=== PATIENT | male | born 1985 | race African-American/Black ===

== ENCOUNTER 2018-07-25 11:38 | Emergency (ER) | payer BC ==
--- NOTE | 2018-07-25 12:08 | EDM.PDOC ---
ED HPI GENERAL MEDICAL PROBLEM - General Chief Complaint: Eye Problems Stated Complaint: PINK EYE Time Seen by Provider: 07/25/18 12:00 Source of Information: Reports: Patient History Limitations: Reports: No Limitations - History of Present Illness INITIAL COMMENTS - FREE TEXT/NARRATIVE: HISTORY AND PHYSICAL: History of present illness: Patient is a 32-year-old male who presents to the ED today with concerns for pinkeye. Patient states this morning when he woke up he notices eye lid was slightly more swollen and his eye was crusted shut. He states he noticed the whites of his eyes are little bit more pink so he came to the ED today. She denies any visual changes, fever, chills, nausea, vomiting, shortness of breath cough, skin rashes, diarrhea, constipation, abdominal pain, chest pain, sore throat, nasal drainage, sinus pain, or all other GI, , respiratory, or cardiovascular concerns. Patient denies any health history. Review of systems: As per history of present illness and below otherwise all systems reviewed and negative. Past medical history: As per history of present illness and as reviewed below otherwise noncontributory. Surgical history: As per history of present illness and as reviewed below otherwise noncontributory. Social history: See social history for further information Family history: As per history of present illness and as reviewed below otherwise noncontributory. Physical exam: General: Patient is alert, oriented, and in no acute distress. He is sitting comfortably on the exam table. HEENT: Atraumatic, normocephalic, pupils equal and reactive bilaterally, negative for conjunctival pallor or scleral icterus, mucous membranes moist, TMs normal bilaterally, throat clear, neck supple, nontender, trachea midline. No drooling or trismus noted. No meningeal signs. No hot potato voice noted. Patient does have slight edema of the right eyelid with crusting around the eyelashes. The sclerae is slightly injected bilaterally. There is no surrounding edema or erythema of the orbital sockets. Lungs: Clear to auscultation, breath sounds equal bilaterally, chest nontender. Heart: S1S2, regular rate and rhythm without overt murmur Abdomen: Soft, nondistended, nontender. Negative for masses or hepatosplenomegaly. Negative for costovertebral tenderness. Pelvis: Stable nontender. Genitourinary: Deferred. Rectal: Deferred. Skin: Intact, warm, dry. No lesions or rashes noted. Extremities: Atraumatic, negative for cords or calf pain. Neurovascular unremarkable. Neuro: Awake, alert, oriented. Cranial nerves II through XII unremarkable. Cerebellum unremarkable. Motor and sensory unremarkable throughout. Exam nonfocal. Notes: On exam, patient does show evidence of conjunctivitis of the right eye and the left appears to be following suit. Will treat for bilateral conjunctivitis. Supportive care measures were reviewed and discussed. Voices understanding and is agreeable to plan of care. Denies any further questions or concerns at this time. Diagnostics: None Therapeutics: None Prescription: Erythromycin ointment Impression: Conjunctivitis, bilateral Plan: 1. Apply the medication as prescribed to both eyes. 2. Follow-up with her primary care provider as discussed. 3. Return to the ED as needed and as discussed. Definitive disposition and diagnosis as appropriate pending reevaluation and review of above. Right Eye Pain Score (Numeric/FACES): 3 - Related Data Allergies Allergy/AdvReac Type Severity Reaction Status Date / Time No Known Allergies Allergy Verified 07/25/18 12:01 Home Meds: Home Meds Lisinopril [Prinivil] 10 mg PO DAILY 07/25/18 [History] ED ROS GENERAL - Review of Systems Review Of Systems: ROS reveals no pertinent complaints other than HPI. ED EXAM GENERAL W FULL EYE - Physical Exam Exam: See Below (See dictation) Course - Vital Signs Last Recorded V/S: Last Vital Signs Temp Pulse 68 07/25/18 12:02 Resp 18 07/25/18 12:02 BP 140/90 07/25/18 12:02 Pulse Ox 97 07/25/18 12:02 Departure - Departure Time of Disposition: 12:08 Disposition: Home, Self-Care 01 Clinical Impression: Conjunctivitis Qualifiers: Conjunctivitis type: acute Acute conjunctivitis type: unspecified Laterality: bilateral Qualified Code(s): H10.33 - Unspecified acute conjunctivitis, bilateral - Discharge Information Referrals: Olivier Le MD [Primary Care Provider] - Forms: ED Department Discharge Additional Instructions: The following information is given to patients seen in the emergency department who are being discharged to home. This information is to outline your options for follow-up care. We provide all patients seen in our emergency department with a follow-up referral. The need for follow-up, as well as the timing and circumstances, are variable depending upon the specifics of your emergency department visit. If you don't have a primary care physician on staff, we will provide you with a referral. We always advise you to contact your personal physician following an emergency department visit to inform them of the circumstance of the visit and for follow-up with them and/or the need for any referrals to a consulting specialist. The emergency department will also refer you to a specialist when appropriate. This referral assures that you have the opportunity for follow-up care with a specialist. All of these measure are taken in an effort to provide you with optimal care, which includes your follow-up. Under all circumstances we always encourage you to contact your private physician who remains a resource for coordinating your care. When calling for follow-up care, please make the office aware that this follow-up is from your recent emergency room visit. If for any reason you are refused follow-up, please contact the [facility] Emergency Department at and asked to speak to the emergency department charge nurse. [facility] [address] [place] [id number] [address] 1. Apply the medication as prescribed to both eyes. 2. Follow-up with her primary care provider as discussed. 3. Return to the ED as needed and as discussed.
== END 2018-07-25 12:37 | disposition home or self-care (01) ==
LOC: MW.ED 11:38
DX: H10.33 Unspecified acute conjunctivitis, bilateral (principal); Z79.899 Other long term (current) drug therapy
CPT/HCPCS: 99282

== ENCOUNTER 2019-12-08 08:50 | Emergency (ER) | payer BC ==
--- NOTE | 2019-12-08 09:27 | EDM.PDOC ---
ED HPI GENERAL MEDICAL PROBLEM - General Chief Complaint: Cardiovascular Problem Stated Complaint: HIGH BLOOD PRESSURE Time Seen by Provider: 12/08/19 09:04 Source of Information: Reports: Patient, Old Records - History of Present Illness INITIAL COMMENTS - FREE TEXT/NARRATIVE: 34-year-old male with a past medical history of hypertension presenting with headache and high blood pressure. Patient self discontinued his antihypertensive medications in May 2019. He is currently on no medications. He was concerned because he checked his blood pressure yesterday and today at [facility] and noted that it was around 170 systolic. He also had a headache and was concerned that it might be related to his high blood pressure. He tells me that he has had headaches about once every other week for at least 1 to 2 years. He has not seen a neurologist in the past or been diagnosed with migraines. The headaches have not been increasing in intensity or frequency and have not changed in character. There is no history of any head trauma. He is intermittently taking acetaminophen and Excedrin with partial relief. He denies any fever, neck stiffness, visual disturbance, dysarthria, dysphasia, impaired gait, facial or extremity numbness or weakness. He denies any chest discomfort, shortness of breath, change in urine output, or extremity edema. ROS: A 10-point review of systems was negative, except as noted in the HPI (or in the ROS section of this note). Past medical history: Reviewed, no additional pertinent history. Surgical history: Reviewed in system, no additional pertinent history. Social history: Reviewed in system, no additional pertinent history. Family history: Reviewed in system, no additional pertinent history. PHYSICAL EXAM Vital signs reviewed. Nursing notes reviewed. Constitutional: Awake, alert, non-distressed. Head: Normocephalic, atraumatic. Neck: Supple, full flexion extension, no carotid bruits Eyes: EOMI, conjunctiva normal, no discharge, no scleral icterus. Pupils 3 mm bilaterally Ears, Nose, Throat: External ears and nose normal, moist oral mucosa. Cardiovascular: 2+ radial pulse, capillary refill less than 2 seconds. No peripheral edema. Pulmonary: normal work of breathing, no accessory muscle use. CTA BL Abdomen/GI: Soft, nontender, nondistended, no guarding or rigidity, no masses. Musculoskeletal: No deformities. Integumentary: Appropriate color for ethnicity, warm, dry, no pallor or jaundice, no rash. Neurologic: Awake, alert, and oriented x3. Cranial nerves II through XII intact. No facial droop or dysarthria. No temporal artery tenderness. Supple neck with normal range of motion. No pronator drift. Normal dxdijg-raqx-xfagxm and xziq-[id number]. No dysdiadochokinesia. 5/5 strength in all extremities. Sensation intact to light touch x4. Negative Romberg. Normal gait. Normal visual hedrick, no field cuts. Able to sit, stand, and ambulate without assistance. Psychiatric: Appropriate mood and affect, normal thought process. headache Pain Score (Numeric/FACES): 6 - Related Data Allergies Allergy/AdvReac Type Severity Reaction Status Date / Time No Known Allergies Allergy Verified 12/08/19 09:07 Home Meds: Home Meds amLODIPine [Norvasc] 5 mg PO DAILY #30 tab 12/08/19 [Rx] lisinopriL [Lisinopril] 25 mg PO DAILY 12/08/19 [History] Past Medical History HEENT History: Reports: None Cardiovascular History: Reports: Hypertension Respiratory History: Reports: None Gastrointestinal History: Reports: None Genitourinary History: Reports: None Musculoskeletal History: Reports: None Neurological History: Reports: None Psychiatric History: Reports: None Endocrine/Metabolic History: Reports: None Hematologic History: Reports: None Immunologic History: Reports: None Oncologic (Cancer) History: Reports: None Dermatologic History: Reports: None - Infectious Disease History Infectious Disease History: Reports: None - Past Surgical History Head Surgeries/Procedures: Reports: None HEENT Surgical History: Reports: None Cardiovascular Surgical History: Reports: None Respiratory Surgical History: Reports: None GI Surgical History: Reports: None Male Surgical History: Reports: None Endocrine Surgical History: Reports: None Neurological Surgical History: Reports: None Musculoskeletal Surgical History: Reports: None Oncologic Surgical History: Reports: None Dermatological Surgical History: Reports: None Social & Family History - Family History Family Medical History: Noncontributory - Tobacco Use Smoking Status *Q: Current Every Day Smoker Years of Tobacco use: 12 Packs/Tins Daily: 0.5 - Caffeine Use Caffeine Use: Reports: Energy Drinks - Recreational Drug Use Recreational Drug Use: Yes Recreational Drug Type: Reports: Marijuana/Hashish Recreational Drug Use Frequency: Rarely ED ROS GENERAL - Review of Systems Review Of Systems: See Below ED EXAM, GENERAL - Physical Exam Exam: See Below Course - Vital Signs Text/Narrative:: Patient hemodynamically stable, afebrile, well-appearing, looks nontoxic. Differential diagnosis includes but is not limited to: Benign headache, migraine, DEVELOPER ADVOCATE tumor, intracranial hemorrhage, subarachnoid hemorrhage, subdural hemorrhage, intraparenchymal hemorrhage, meningitis, encephalitis, hypertensive emergency, hypertensive urgency, benign essential hypertension, etc. Neuro examination nonfocal. Headache is not changing in character, intensity, or frequency for several years so suspicion for an acute or progressive [employer]EL[employer] emergency is quite low. Presentation is not concerning for subarachnoid hemorrhage. There is no photophobia or limitation of neck flexion. No anisocoria. Neck is supple. No cranial nerve deficits noted. Afebrile, no infectious symptoms. No history of head trauma. Given that this headache seems chronic in nature and unchanging, we did discuss CT imaging here in the emergency department versus outpatient MRI and primary care or neurology evaluation. I feel that this point there is no indication for an emergent noncontrast head CT given that these headaches are chronic. We are going to have the patient follow-up with a primary care doctor for reevaluation and determine if further testing including outpatient CT or MR are warranted, unless symptoms progress, change, or worsen, in which case he knows to return to the emergency department immediately for reevaluation. I did offer oral analgesic pain medications, which the patient declined. He is mildly hypertensive here and we will start him on an initial dose of oral amlodipine until he can be seen by primary care physician for further evaluation including a physical and baseline labs as deemed necessary. He has no symptoms to suggest a hypertensive emergency such as severe headache, visual disturbance, chest discomfort, shortness of breath, anuria, or severe edema. There is no indication to emergently lower his blood pressure here in the ED. Prescription for amlodipine was sent to the pharmacy. Plan: Patient is stable to discharge home with outpatient primary care follow- up. Strict emergency department return precautions were provided, patient indicated understanding. All questions were answered prior to departure. Discharged in good condition. Last Recorded V/S: Last Vital Signs Temp 36.6 C 12/08/19 09:04 Pulse 70 12/08/19 09:04 Resp 17 12/08/19 09:04 BP 158/102 H 12/08/19 09:04 Pulse Ox 98 12/08/19 09:04 Departure - Departure Time of Disposition: :26 Disposition: Home, Self-Care 01 Condition: Good Clinical Impression: Essential hypertension Chronic headache Qualifiers: Headache type: unspecified Intractability: not intractable Qualified Code(s): R51 - Headache Prescriptions: amLODIPine [Norvasc] 5 mg PO DAILY #30 tab Instructions: Preventing Hypertension, Hypertension, Adult, [id number], General Headache Without Cause, [id number] Referrals: [facility] - Family Practice [Provider Group] - 1 Week Additional Instructions: Thank you for choosing the [facility] emergency department in [place] for your medical needs today. It was a pleasure caring for you. The features of your headache seem to be chronic at this point and I would like for you to follow-up with a primary care physician for further evaluation. You can take [id number]-rdjyyrf acetaminophen and ibuprofen as directed for pain. We will start you on a low-dose blood pressure medication, your primary care physician can decide if they want to adjust this or add additional medications. Come back to the ER immediately if your headache worsens or changes, if you have chest pain, shortness of breath, or any other new or concerning symptoms. Please return the emergency department immediately if your symptoms worsen or if you feel worse. The following information is given to patients seen in the emergency department who are being discharged. This information is to outline your options for follow-up care. We provide all patients seen in our emergency department with a follow-up referral. The need for follow-up, as well as the timing and circumstances, are variable depending upon the specifics of your emergency department visit. If you don't have a primary care physician on staff, we will provide you with a referral. We always advise you to contact your personal physician following an emergency department visit to inform them of the circumstance of the visit and for follow-up with them and/or the need for any referrals to a consulting specialist. The emergency department will also refer you to a specialist when appropriate. This referral assures that you have the opportunity for follow-up care with a specialist. All of these measure are taken in an effort to provide you with optimal care, which includes your follow-up. Under all circumstances we always encourage you to contact your private physician who remains a resource for coordinating your care. When calling for follow-up care, please make the office aware that this follow-up is from your recent emergency room visit. If for any reason you are refused follow-up, please contact the [facility] Emergency Department at and asked to speak to the emergency department charge nurse. If you do not have a primary care physician that is caring for you, you can contact these clinics below to set up an appointment to establish care: [facility] - Primary Care [address] [place] [id number] [address] Sepsis Event Note (ED) - Evaluation Sepsis Screening Result: No Definite Risk - Focused Exam Vital Signs: Vital Signs Temp Pulse Resp BP Pulse Ox 12/08/19 09:04 36.6 C 70 17 158/102 H 98
== END 2019-12-08 09:40 | disposition home or self-care (01) ==
LOC: MERGE 08:50 → MW.ED 08:50
DX: I10 Essential (primary) hypertension (principal); R51 Headache; F17.210 Nicotine dependence, cigarettes, uncomplicated; Z79.899 Other long term (current) drug therapy
CPT/HCPCS: 99283

== ENCOUNTER 2020-01-24 22:31 | Emergency (ER) | payer SELFPAY ==
[2020-01-24] MEDS ORDERED: Ketorolac 60 MG/2 ML SDV IM ONE (23:09)
--- NOTE | 2020-01-24 23:42 | CR ---
Lumbar spine: AP, lateral and cone-down lateral view centered to the lumbosacral junction were obtained. Comparison: No prior lumbar spine imaging is available. Vertebral body heights and disc spaces are maintained. Pedicles are intact. Visualized transverse and spinous processes are intact. Sacroiliac joints appear within normal limits. Impression: 1. No abnormality is appreciated on three-view lumbar spine study. Diagnostic code #1 This report was dictated in MDT
--- NOTE | 2020-01-24 23:52 | EDM.PDOC ---
ED HPI GENERAL MEDICAL PROBLEM - General Chief Complaint: Back Pain or Injury Stated Complaint: SHOCKS IN BACK Time Seen by Provider: 01/24/20 23:05 - History of Present Illness INITIAL COMMENTS - FREE TEXT/NARRATIVE: HISTORY AND PHYSICAL: History of present illness: This is a 34-year-old gentleman who presents the ER today secondary to acute onset of lower back pain while he was try to stand up from the couch. Patient denies any other symptomatology. Patient has any recent fevers, shakes, chills, nausea, vomiting, diarrhea, dysuria, frequency, urgency, hematuria, chest pain, shortness of breath. Patient denies any weakness to his upper or lower extremities. Patient denies any loss of bowel or bladder function. Patient denies any paresthesias to his perineal region. Review of systems: As per history of present illness and below otherwise all systems reviewed and negative. Past medical history: As per history of present illness and as reviewed below otherwise noncontributory. Surgical history: As per history of present illness and as reviewed below otherwise noncontributory. Social history: No reported history of drug or alcohol abuse. Family history: As per history of present illness and as reviewed below otherwise noncontributory. Physical exam: Constitutional: Patient is oriented to person, place, and time. Appears well- developed and well-nourished. No distress. HEENT: Moist mucous membranes Head: Normocephalic and atraumatic Eyes: Right eye exhibits no discharge. Left eye exhibits no discharge. No scleral icterus Neck: Normal range of motion. No tracheal deviation present. Cardiovascular: Normal rate and regular rhythm. Pulmonary: Effort normal, no respiratory distress. Abdominal: No distention Musculoskeletal: Normal range of motion Neuro: A&Ox3. Cranial nerves II-XII grossly intact, 5/5 strength to bilateral upper and lower extremities, sensation intact to bilateral upper and lower extremities, no nystagmus, PERRLA, EOMI, normal speech, proprioception intact to bilateral lower extremities, normal finger to nose test, gait normal Skin: [place], warm and dry. Psychiatric: Normal mood and affect. Behavior is normal. Judgment and thought content normal. Nursing note and vital signs have been reviewed Patient's ER physical exam is significant for tenderness to palpation to his lower back laterally. Patient has pain to the left and right sides. Patient has no specific point tenderness to his C-spine T-spine or L-spine. Diagnostics: Lumbar x-rays reveal no acute bony fracture pathology as interpreted by radiology Therapeutics: Toradol 60 mg IM Assessment and plan: This is a 34-year-old gentleman who presents ER today with acute onset of lower back pain appears to be mechanical in nature. Patient has been given Toradol IM and will be discharged home with ibuprofen and Flexeril. Patient has no neurological deficits. Patient be instructed to follow-up with his primary care physician for further evaluation and management of his pain. Reassessment at the time of disposition demonstrates that the patient is in no acute distress. The patient has remained stable throughout the entire ED visit and is without objective evidence for acute process requiring urgent intervention or hospitalization. The patient is stable for discharge, counseling is provided as documented above, discussed symptomatic treatment and specific conditions for return. I have spoken with the patient/caregive and discussed todays findings, in addition to providing specific details for the plan of care. Questions are answered and there is agreement with the plan. lower back Pain Score (Numeric/FACES): 9 - Related Data Allergies Allergy/AdvReac Type Severity Reaction Status Date / Time No Known Allergies Allergy Verified 01/24/20 22:38 Home Meds: Home Meds amLODIPine [Norvasc] 5 mg PO DAILY #30 tab 12/08/19 [Rx] Cyclobenzaprine [Flexeril] 10 mg PO TID PRN #20 tab 01/24/20 [Rx] Ibuprofen 600 mg PO Q6HR PRN #30 tablet 01/24/20 [Rx] Past Medical History HEENT History: Reports: None Cardiovascular History: Reports: Hypertension Respiratory History: Reports: None Gastrointestinal History: Reports: None Genitourinary History: Reports: None Musculoskeletal History: Reports: None Neurological History: Reports: None Psychiatric History: Reports: None Endocrine/Metabolic History: Reports: None Hematologic History: Reports: None Immunologic History: Reports: None Oncologic (Cancer) History: Reports: None Dermatologic History: Reports: None - Infectious Disease History Infectious Disease History: Reports: None - Past Surgical History Head Surgeries/Procedures: Reports: None HEENT Surgical History: Reports: None Cardiovascular Surgical History: Reports: None Respiratory Surgical History: Reports: None GI Surgical History: Reports: None Male Surgical History: Reports: None Endocrine Surgical History: Reports: None Neurological Surgical History: Reports: None Musculoskeletal Surgical History: Reports: None Oncologic Surgical History: Reports: None Dermatological Surgical History: Reports: None Social & Family History - Family History Family Medical History: Noncontributory - Tobacco Use Smoking Status *Q: Current Every Day Smoker Years of Tobacco use: 13 Packs/Tins Daily: 0.5 - Caffeine Use Caffeine Use: Reports: Coffee, Energy Drinks, Soda - Recreational Drug Use Recreational Drug Use: Yes Recreational Drug Type: Reports: Marijuana/Hashish ED ROS GENERAL - Review of Systems Review Of Systems: See Below ED EXAM, GENERAL - Physical Exam Exam: See Below Course - Vital Signs Last Recorded V/S: Last Vital Signs Temp 98.7 F 01/24/20 22:39 Pulse 70 01/24/20 22:39 Resp 18 01/24/20 22:39 BP 155/89 H 01/24/20 22:39 Pulse Ox 99 01/24/20 22:39 - Orders/Labs/Meds Meds: Medications Discontinued Medications Generic Name Dose Route Start Last Admin Trade Name Kennedi PRN Reason Stop Dose Admin Ketorolac Tromethamine 60 mg 01/24/20 23:09 01/24/20 23:42 Toradol IM 01/24/20 23:10 60 mg ONETIME ONE Administration Departure - Departure Time of Disposition: 23:50 Disposition: Home, Self-Care 01 Condition: Good Clinical Impression: Low back pain, Musculoskeletal back pain - Discharge Information Instructions: Acute Back Pain, Adult, Back Exercises, [id number] Referrals: PCP,None [Primary Care Provider] - Additional Instructions: The following information is given to patients seen in the emergency department who are being discharged to home. This information is to outline your options for follow-up care. We provide all patients seen in our emergency department with a follow-up referral. The need for follow-up, as well as the timing and circumstances, are variable depending upon the specifics of your emergency department visit. If you don't have a primary care physician on staff, we will provide you with a referral. We always advise you to contact your personal physician following an emergency department visit to inform them of the circumstance of the visit and for follow-up with them and/or the need for any referrals to a consulting specialist. The emergency department will also refer you to a specialist when appropriate. This referral assures that you have the opportunity for follow-up care with a specialist. All of these measure are taken in an effort to provide you with optimal care, which includes your follow-up. Under all circumstances we always encourage you to contact your private physi josue who remains a resource for coordinating your care. When calling for follow- up care, please make the office aware that this follow-up is from your recent emergency room visit. If for any reason you are refused follow-up, please contact the [facility] Emergency Department at and asked to speak to the emergency department charge nurse. Sepsis Event Note (ED) - Evaluation Sepsis Screening Result: No Definite Risk - Focused Exam Vital Signs: Vital Signs Temp Pulse Resp BP Pulse Ox 01/24/20 22:39 98.7 F 70 18 155/89 H 99
== END 2020-01-25 00:17 | disposition home or self-care (01) ==
LOC: MW.ED 22:31
DX: M54.5 Low back pain (principal); I10 Essential (primary) hypertension; F17.210 Nicotine dependence, cigarettes, uncomplicated; Z79.899 Other long term (current) drug therapy
CPT/HCPCS: 72100; 96372; 99283; J1885

== ENCOUNTER 2020-06-13 17:11 | Emergency (ER) | payer MEDICAID, OTHER ==
[2020-06-13] MEDS ORDERED: Ketorolac 60 MG/2 ML SDV IM ONE (18:21)
[2020-06-13] MEDS ORDERED: methylPREDNISolone Sodium Succinate 125 MG/2 ML SDV IM ONE (18:21)
--- NOTE | 2020-06-13 18:54 | EDM.PDOC ---
ED HPI GENERAL MEDICAL PROBLEM - General Chief Complaint: Back Pain or Injury Stated Complaint: BACK PAIN Time Seen by Provider: 06/13/20 17:27 Source of Information: Reports: Patient History Limitations: Reports: No Limitations - History of Present Illness INITIAL COMMENTS - FREE TEXT/NARRATIVE: HISTORY AND PHYSICAL: History of present illness: Patient is a 34-year-old male who presents to the emergency room with complaints of low lumbar back pain. He states he has had this pain since January 2020. He was seen in the emergency room and had an x-ray at that time which was unremarkable. He was given a prescription for Flexeril which he states has helped the discomfort but since taking it his pain is slowly returned. He has been using [id number] Tylenol and ibuprofen without much relief. Denies any injury, trauma or falls. Denies any numbness, tingling, saddle paresthesia or weakness. Denies any urinary or fecal incontinence. Patient denies any fever, chills, headache, change in vision, syncope or near syncope. Denies any chest pain, back pain, shortness of breath or cough. Denies any GI or symptoms. Review of systems: As per history of present illness and below otherwise all systems reviewed and negative. Past medical history: As per history of present illness and as reviewed below otherwise noncontributory. Surgical history: As per history of present illness and as reviewed below otherwise noncontributory. Social history: See social history for further information Family history: As per history of present illness and as reviewed below otherwise noncontributory. Physical exam: General: Well developed and well nourished 34 year old black male. Alert and orientated x 3. Nontoxic in appearance and in no acute distress. Vital signs are stable and have been reviewed by me. Nursing notes were reviewed. HEENT: Atraumatic, normocephalic, pupils equal and reactive bilaterally, negative for conjunctival pallor or scleral icterus, mucous membranes moist, TMs normal bilaterally, throat clear, neck supple, nontender, trachea midline. No drooling or trismus noted. No meningeal signs. No hot potato voice noted. Lungs: Clear to auscultation bilaterally. No wheezes, rales, or rhonchi. Chest nontender. Normal work of breathing, no accessory muscles used. Heart: S1S2, regular rate and rhythm without overt murmur, gallops, or rubs. No JVD. No peripheral edema Abdomen: Soft, nondistended, nontender. Normoactive bowel sounds. Negative for masses or costovertebral tenderness. C-spine/Back: No pinpoint vertebral tenderness upon palpation. No crepitus, step-offs or obvious deformities. He does have pain to the low lumbar region bilateral paraspinous area. Patient is ambulatory into the emergency room without difficulty or deficit. Able to rock back on heels and walk on toes. Denies any urinary or fecal incontinence. Denies any numbness, tingling or saddle paresthesia. No concerns of serious infection, fracture or cord compression, or cauda equina syndrome. Deep tendon reflexes brisk bilaterally. Skin: Intact, warm, dry. No lesions or rashes noted. Hematologic: No petechiae or purpra. Mucosa appropriate color and normal nail bed color and refill. Extremities: Atraumatic, moves all extremities per self without difficulty or deficits, negative for cords or calf pain. Straight leg test within normal limits. Neurovascular unremarkable. Neuro: Awake, alert, oriented. Cranial nerves II through XII unremarkable. Cerebellum unremarkable. Motor and sensory unremarkable throughout. Exam nonfocal. Psychiatric: Mood and affect are appropriate. Normal thought process. Answering questions appropriately. Notes: *This patient was seen and evaluated during the 2019 SARS-CoV-2 novel coronavirus pandemic period. Community viral transmission is ongoing at time of this encounter and the emergency department is operating under pandemic response procedures. I do see that the patient has had a x-ray from his last ER visit, no acute or specific findings. Due to the continued pain I will do further imaging with a CT scan. My physical exam is unremarkable. He is neurologically intact. Today CT shows some posterior disc protrusion present at L5-S1 without central canal or foraminal stenosis. Otherwise unremarkable lumbar spine CT. I have talked with the patient about today's findings, in addition to providing specific details for plan of care. Reassessment at the time of disposition demonstrates that the patient is in no acute distress. The patient is stable for discharge, counseling was provided and we discussed in great detail signs and symptoms that would prompt them to return to the Emergency Department. Medication, follow up and supportive care measures were reviewed and discussed. Voices understanding and is agreeable to plan of care. Denies any further questions or concerns at this time. Diagnostics: CT lumbar spine Therapeutics: Medrol IM, Toradol, Lidocaine Prescription: Lidocaine, Diclofenac Impression: Lumbago Plan: 1. Your CT scan shows posterior disc protrusion present at L5-S1 without central canal or foraminal stenosis. 2. When resting please lay on a flat firm surface. Limit your immobility to prevent muscle stiffness. Get up to ambulate/move around/gentle stretching multiple times throughout the day. May alternate heat and ice to the painful areas 3. Tylenol as needed for back pain. Otherwise take the prescribed Flexeril and diclofenac as directed. Diclofenac is an anti-inflammatory so do not take any additional NSAIDs with this medication, such as ibuprofen or Aleve. Flexeril as a muscle relaxant, this medication may cause drowsiness a do not take it will driving her needing to be functioning outside of the house. 4. Please follow-up with your primary care provider as we discussed. If your symptoms should worsen, new symptoms develop or any of the signs and symptoms we discussed should arise please return to the emergency room or call 911 (if nee ded). Definitive disposition and diagnosis as appropriate pending reevaluation and review of above. lower back Pain Score (Numeric/FACES): 8 - Related Data Allergies Allergy/AdvReac Type Severity Reaction Status Date / Time No Known Allergies Allergy Verified 06/13/20 19:19 Home Meds: Home Meds amLODIPine [Norvasc] 5 mg PO DAILY #30 tab 12/08/19 [Rx] Cyclobenzaprine [Flexeril] 10 mg PO TID PRN #20 tab 01/24/20 [Rx] Ibuprofen 600 mg PO Q6HR PRN #30 tablet 01/24/20 [Rx] Diclofenac Sodium [Voltaren] 75 mg PO BIDMEALS PRN #30 tab.cr 06/13/20 [Rx] Lidocaine [Lidoderm] 1 each TP DAILY 7 Days #7 adh..patch 06/13/20 [Rx] Past Medical History HEENT History: Reports: None Cardiovascular History: Reports: Hypertension Respiratory History: Reports: None Gastrointestinal History: Reports: None Genitourinary History: Reports: None Musculoskeletal History: Reports: None Neurological History: Reports: None Psychiatric History: Reports: None Endocrine/Metabolic History: Reports: None Hematologic History: Reports: None Immunologic History: Reports: None Oncologic (Cancer) History: Reports: None Dermatologic History: Reports: None - Infectious Disease History Infectious Disease History: Reports: None - Past Surgical History Head Surgeries/Procedures: Reports: None HEENT Surgical History: Reports: None Cardiovascular Surgical History: Reports: None Respiratory Surgical History: Reports: None GI Surgical History: Reports: None Male Surgical History: Reports: None Endocrine Surgical History: Reports: None Neurological Surgical History: Reports: None Musculoskeletal Surgical History: Reports: None Oncologic Surgical History: Reports: None Dermatological Surgical History: Reports: None Social & Family History - Family History Family Medical History: No Pertinent Family History - Caffeine Use Caffeine Use: Reports: Coffee, Energy Drinks, Soda ED ROS GENERAL - Review of Systems Review Of Systems: Comprehensive ROS is negative, except as noted in HPI. ED EXAM,LOWER BACK PAIN/INJURY - Physical Exam Exam: See Below (See dictation) Course - Vital Signs Last Recorded V/S: Last Vital Signs Temp 98 F 06/13/20 17:30 Pulse 81 06/13/20 19:25 Resp 18 06/13/20 19:25 BP 183/119 H 06/13/20 19:25 Pulse Ox 96 06/13/20 19:25 - Orders/Labs/Meds Meds: Medications Discontinued Medications Generic Name Dose Route Start Last Admin Trade Name Freq PRN Reason Stop Dose Admin Ketorolac Tromethamine 60 mg 06/13/20 18:21 06/13/20 19:02 Toradol IM 06/13/20 18:22 60 mg ONETIME ONE Administration Lidocaine 700 mg 06/13/20 19:10 06/13/20 19:24 Lidoderm 5% TOP 06/13/20 19:11 700 mg ONETIME ONE Administration Methylprednisolone Sodium Succinate 125 mg 06/13/20 18:21 06/13/20 19:03 Solu-Medrol IM 06/13/20 18:22 125 mg ONETIME ONE Administration Departure - Departure Time of Disposition: 19:33 Disposition: Home, Self-Care 01 Clinical Impression: Lumbago Qualifiers: Chronicity: chronic Back pain laterality: midline Sciatica presence: without sciatica Qualified Code(s): M54.5 - Low back pain; G89.29 - Other chronic pain - Discharge Information Prescriptions: Lidocaine [Lidoderm] 1 each TP DAILY 7 Days #7 adh..patch Diclofenac Sodium [Voltaren] 75 mg PO BIDMEALS PRN #30 tab.cr PRN Reason: Pain Instructions: Chronic Back Pain, [id number] Referrals: PCP,None [Primary Care Provider] - Forms: ED Department Discharge Additional Instructions: The following information is given to patients seen in the emergency department who are being discharged to home. This information is to outline your options for follow-up care. We provide all patients seen in our emergency department with a follow-up referral. The need for follow-up, as well as the timing and circumstances, are variable depending upon the specifics of your emergency department visit. If you don't have a primary care physician on staff, we will provide you with a referral. We always advise you to contact your personal physician following an emergency department visit to inform them of the circumstance of the visit and for follow-up with them and/or the need for any referrals to a consulting specialist. The emergency department will also refer you to a specialist when appropriate. This referral assures that you have the opportunity for follow-up care with a specialist. All of these measure are taken in an effort to provide you with optimal care, which includes your follow-up. Under all circumstances we always encourage you to contact your private physician who remains a resource for coordinating your care. When calling for follow-up care, please make the office aware that this follow-up is from your recent emergency room visit. If for any reason you are refused follow-up, please contact the [facility] Emergency Department at and asked to speak to the emergency department charge nurse. [facility] [address] [place] [id number] [facility] [address] [place] [id number] Thank you for choosing the [facility] emergency department in [place] for your medical needs today. It was a pleasure caring for you. Today you were seen in the emergency department for back pain. 1. Your CT scan shows posterior disc protrusion present at L5-S1 without central canal or foraminal stenosis. 2. When resting please lay on a flat firm surface. Limit your immobility to prevent muscle stiffness. Get up to ambulate/move around/gentle stretching multiple times throughout the day. May alternate heat and ice to the painful areas 3. Tylenol as needed for back pain. Otherwise take the prescribed Flexeril and diclofenac as directed. Diclofenac is an anti-inflammatory so do not take any additional NSAIDs with this medication, such as ibuprofen or Aleve. Flexeril as a muscle relaxant, this medication may cause drowsiness a do not take it will driving her needing to be functioning outside of the house. 4. Please follow-up with your primary care provider as we discussed. If your symptoms should worsen, new symptoms develop or any of the signs and symptoms we discussed should arise please return to the emergency room or call 911 (if needed). Sepsis Event Note (ED) - Focused Exam Vital Signs: Vital Signs Temp Pulse Resp BP Pulse Ox 06/13/20 19:25 81 18 183/119 H 96 06/13/20 17:30 98 F 77 18 155/113 H 98
--- NOTE | 2020-06-13 18:55 | CT ---
INDICATION: Low back pain. TECHNIQUE: CT lumbar spine without contrast. COMPARISON: None FINDINGS: Vertebrae: Alignment is normal. There are no fractures or suspicious bony lesions. Discs and facet joints: A posterior disc protrusion is present at L5-S1. Disc spaces and facet joints are otherwise within normal limits. No central canal or foraminal stenosis. Extraspinal findings: Prevertebral soft tissues and visualized retroperitoneum are unremarkable. IMPRESSION: Posterior disc protrusion present at L5-S1 without central canal or foraminal stenosis. Otherwise unremarkable lumbar spine CT. Please note that all CT scans at this facility use dose modulation, iterative reconstruction, and/or weight-based dosing when appropriate to reduce radiation dose to as low as reasonably achievable. Dictated by Jason Reis MD @ Jun 13 2020 6:47PM Signed by Dr. Jason Reis @ Jun 13 2020 6:53PM
[2020-06-13] MEDS ORDERED: Lidocaine 5% 700 MG Patch TOP ONE (19:10)
== END 2020-06-13 19:45 | disposition home or self-care (01) ==
LOC: MW.ED 17:11
DX: M54.5 Low back pain (principal); G89.29 Other chronic pain; I10 Essential (primary) hypertension; Z79.899 Other long term (current) drug therapy
CPT/HCPCS: 72131; 96372; 99283; A9270; J1885; J2930